=== PATIENT | male | born 1950 | race Caucasian/White ===

== ENCOUNTER 2024-03-12 18:11 | Emergency (ER) | payer MEDICARE, BC ==
[2024-03-12] VITALS (15 sets, daily range): BP systolic 126–190; BP diastolic 51–81
[~2024-03-12] VITALS: Ht 185.4 cm; Wt 112.0 kg
[2024-03-12] MEDS ORDERED: predniSONE 20 MG/TAB PO ONE (19:55)
[2024-03-12] MEDS ORDERED: KETOROLAC TROMETHAMINE 15 MG/ML SDV IM ONE (19:55)
[2024-03-12] MEDS ORDERED: ONDANSETRON 4 MG/TAB ODT PO ONE (20:10)
[2024-03-12] MEDS ORDERED: MORPHINE SULFATE 4 MG/ML VIAL IM ONE (20:10)
[2024-03-12 20:38] LABS: BASO% 0.4 % (0-3); EOS% 1.3 % (0-8); HEMATOCRIT 43.6 % (39.0-50.0); HEMOGLOBIN 14.2 g/dl (14.0-18.0); IMMATURE GRANULOCYTES 0.1 % (0.0-5.0); LYMPH% 24.7 % (15-41); MEAN CELL VOLUME 93.6 fL CALC (80.0-100.0); MEAN CORPUSCULAR HGB 30.5 pG CALC (26.0-32.0); MEAN CORPUSCULAR HGB CONC 32.6 g/dL CAL (32.0-36.0); NEUT# 4.38 thou/uL (1.82-7.42); NEUT% 64.5 % (42-76); RED BLOOD COUNT 4.66 mill/uL (4.70-6.10); RED CELL DISTRI WIDTH 12.5 % (11.5-15.5)
[2024-03-12 20:44] LABS: ALBUMIN 4.1 g/dL (3.2-5.0); BILIRUBIN, TOTAL 0.8 mg/dL (0.2-1.3); CREATININE 0.8 mg/dL (0.7-1.3); POTASSIUM 4.4 mmol/l (3.5-5.1); TOTAL PROTEIN 6.7 g/dL (6.3-8.2)
[2024-03-12 21:26] LABS: D-DIMER 1.12 mg/L (0.19-0.60); PROTHROMBIN TIME 10.4 SECONDS (9.0-12.5)
[2024-03-13] VITALS (8 sets, daily range): BP systolic 140–168; BP diastolic 64–75
[2024-03-13] MEDS ORDERED: PREDNISONE20 MG PO (01:35)
[2024-03-13] MEDS ORDERED: oxyCODONE 5MG/ ACETAMINOPHEN 325MG TAB PO ONE (01:40)
== END 2024-03-13 01:52 | disposition home or self-care (01) ==
LOC: ED 18:11
PROVIDERS: Nurse Practitioner
DX: M79.605 Pain in left leg (principal); I10 Essential (primary) hypertension; M48.00 Spinal stenosis, site unspecified; S80.812A Abrasion, left lower leg, initial encounter; S80.811A Abrasion, right lower leg, initial encounter; W19.XXXA Unspecified fall, initial encounter
CPT/HCPCS: J1885